=== PATIENT | male | born 1950 | race Caucasian/White ===

== ENCOUNTER → 2020-03-04 09:52 | Outpatient (CLI) | payer MEDICARE, OTHER ==
--- NOTE | ~2020-03-04 | EC ---
PATIENT:BEVERLY ACUNA DATE OF SERVICE: 03/04/20 SEX: M MEDICAL RECORD: [id number] DATE OF : 54 LOCATION:D[facility] AGE OF PATIENT: 69 ADMISSION DATE: 03/04/20 REFERRING PHYSICIAN: INTERPRETING PHYSICIAN: SANDRA MENDEZ MD ECHOCARDIOGRAM REPORT ECHO CHARGES 4 ECHO COMPLETE Date: 03/04/20 CLINICAL DIAGNOSIS: CEREBRAL INFARCTION ECHOCARDIOGRAPHIC MEASUREMENTS (adult normal given) AC root (d.<3.7cm) 3.2 cm LV Septum d (<1.2 cm> 1.3 cm Valve Excursion 1.8 cm LV Septum (systole) 1.4 cm Left Atria (s.<4.0cm> 4.3 cm LVPW d(<1.2cm) 1.3 cm RV (d.<2.3cm) 3.1 cm LVPW (sytole) 1.4 cm LV diastole(<5.6CM) 5.9 cm MV E-F(>70mm/sec) cm LV systole 5.3 cm LVOT Diameter 1.8 cm MV exc.(>10mm) 0.9 cm Est.ejection fraction (50-75%) % DOPPLER: LVIT cm/sec A 75 cm/sec E 62 cm/sec LA cm/sec RVSP 16 mmHg LVOT 126 cm/sec AOP1/2T m/s Asc. Ao 130 cm/sec RVOT 813 cm/sec RA cm/sec PA 107 cm/sec AV Gradient Peak 6.8 mmHg AV Mean 3.8 mmHg AV Area 2.4 cm MV Gradient Peak 2.9 mmHg MV Mean 1.6 mmHg MV Area cm COMMENTS: Microbiological Analyst: Stacey [facility] Steel Cutter: 3 Dr. Estes TAPE# PACS Pericardial Effusion N DATE OF SERVICE: Adequate 2D, color flow imaging, spectral Doppler, and M-Mode. LVH is present. LV internal dimensions are normal. Wall motion normal. EF greater than or equal to 55%. Aortic valve is tricuspid. There is no evidence of stenosis. There is trivial AI by color flow imaging. Left atrium is dilated at 4.3 cm. Mitral valve shows no prolapse. Trivial MR. Right-sided chamber grossly normal. Trivial TR. 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
== END | disposition home or self-care (01) ==
LOC: D.ECHO 09:00 → D.MRI 11:00
PROVIDERS: ATTEND Psychiatry & Neurology Neurology
DX: I63.311 Cerebral infarction due to thrombosis of right middle cerebral artery (principal)